=== PATIENT | female | born 1950 | race Caucasian/White ===

== ENCOUNTER 2017-04-04 20:40 | Inpatient (IN) | payer MEDICARE, OTHER ==
[~2017-04-04] VITALS: Ht 152.4 cm; Wt 84.7 kg
[2017-04-04 21:51] LABS: Basophils # (auto) 0 uL; Basophils % (auto) 0.3 % (0.0-2.0); Eosinophils # (auto) 0.1 uL; Eosinophils % (auto) 2.8 % (0.0-7.0); Hematocrit 39.4 % (36.0-46.0); Hemoglobin 13.1 g/dL (12.2-16.2); Lymphocytes # (auto) 1.1 uL; Lymphocytes % (auto) 22.4 % (10.0-50.0); Mean Corpuscular Hemoglobin 30.3 pg (28.0-32.0); Mean Corpuscular Hgb Conc. 33.3 g/dL (32.0-36.0); Mean Corpuscular Volume 90.8 fL (80.0-100.0); Monocytes # (auto) 0.6 uL; Monocytes % (auto) 11.9 % (0.0-12.0); Neutrophils % (auto) 62.6 % (37.0-80.0); Nucleated Red Blood Cells % 0.2 %; Platelet Count (auto) 81 10^3/uL (140-450); Red Blood Cells 4.34 10^6/uL (4.0-5.20); Red Cell Distribution Width 14.4 % (11.8-14.3); White Blood Cell 4.7 10^3/uL (4.4-10.8)
[2017-04-04 22:08] LABS: INR 1.15 (0.9-1.15); Partial Thromboplastin Time 29.4 sec (22.64-33.71); Prothrombin Time 12.5 sec (9.37-12.3)
[2017-04-04 22:27] LABS: Alanine Aminotransferase 37 U/L (13-56); Albumin 2.6 g/dL (3.4-5.0); Alkaline Phosphatase 104 U/L (45-117); Anion Gap 7 (5-15); Aspartate Aminotransferase 52 U/L (15-37); BUN/Creatinine Ratio 14.9; Bilirubin, Total 1.3 mg/dL (0.2-1.0); Blood Urea Nitrogen 11 mg/dL (7-18); Calcium 7.7 mg/dL (8.5-10.1); Carbon Dioxide 27 mmol/L (21-32); Chloride 104 mmol/L (98-107); GFR African American 101 mL/min; GFR Non-African American 83 mL/min; Glucose 258 mg/dL (74-106); Magnesium 2.2 mg/dL (1.6-2.6); Potassium 4.4 mmol/L (3.5-5.1); Sodium 138 mmol/L (136-145); Total Protein 7.1 g/dL (6.4-8.2)
[2017-04-05] MEDS ORDERED: FUROSEMIDE 20 MG/2 ML VIAL IV ONE (00:45)
[2017-04-05] MEDS ORDERED: DEXTROSE (50%) 50ML SYRG IV PRN (00:45)
[2017-04-05 04:17] LABS: Urine Bacteria None Seen /hpf (None Seen)
[2017-04-05 04:50] LABS: Urine Blood Trace /uL (Negative); Urine Specific Gravity 1.034 (1.001-1.035)
[2017-04-05 04:53] LABS: Urine WBC MANY /hpf (0 - 5)
[2017-04-05 05:26] LABS: Basophils # (auto) 0 uL; Basophils % (auto) 0.8 % (0.0-2.0); Eosinophils # (auto) 0.1 uL; Hemoglobin 12.4 g/dL (12.2-16.2); Lymphocytes # (auto) 1.2 uL; Monocytes # (auto) 0.4 uL; Nucleated Red Blood Cells % 0.2 %; Red Cell Distribution Width 14.3 % (11.8-14.3); White Blood Cell 4.6 10^3/uL (4.4-10.8)
[2017-04-05 05:28] LABS: Eosinophils % (auto) 2.2 % (0.0-7.0); Hematocrit 36.6 % (36.0-46.0); Lymphocytes % (auto) 25.6 % (10.0-50.0); Mean Corpuscular Volume 91.3 fL (80.0-100.0); Monocytes % (auto) 9.5 % (0.0-12.0); Neutrophils # (auto) 2.9 uL; Neutrophils % (auto) 61.9 % (37.0-80.0); Platelet Count (auto) 65 10^3/uL (140-450)
[2017-04-05 05:42] LABS: Albumin 2.4 g/dL (3.4-5.0); BUN/Creatinine Ratio 15.3; Bilirubin, Total 1.9 mg/dL (0.2-1.0); Calcium 7.5 mg/dL (8.5-10.1); Total Protein 6.4 g/dL (6.4-8.2)
[2017-04-05] MEDS: GABAPENTIN 400 MG CAP PO SCH ×3 (06:00→21:49)
[2017-04-05] MEDS: ACCU-CHEK COMFORT CURVE STRIP VI SCH ×4 (06:45→22:00)
[2017-04-05] MEDS: LEVOTHYROXINE SODIUM 50 MCG TAB PO SCH (06:45)
[2017-04-05] MEDS: InsuLIN REG 1unit/0.01ml Soln (100units/ml) SC SCH ×4 (06:49→22:00)
[2017-04-05] MEDS: FUROSEMIDE 20 MG TAB PO SCH (09:45)
[2017-04-05] MEDS: APIXABAN 5 MG TAB PO SCH ×2 (09:45→21:49)
[2017-04-05] MEDS ORDERED: METOPROLOL SUCCINATE XL 50 MG TAB PO SCH (10:00)
[2017-04-05] MEDS: metFORMIN HYDROCHLORIDE 500 MG TAB PO SCH ×2 (14:00→21:54)
[2017-04-05 18:34] LABS: Cholesterol 141 mg/dL (< 200); HDL Cholesterol 59 mg/dL (40-59); LDL Cholesterol 84 mg/dL (< 100); Triglycerides 86 mg/dL (< 150)
[2017-04-05 20:00] VITALS: BP 133/69
[2017-04-05] MEDS: ATORVASTATIN 20 MG TAB PO SCH (21:48)
[2017-04-05 21:59] VITALS: BP 133/69
[2017-04-05] MEDS: INSULIN DETEMIR(LEVEMIR) 1unit/0.01ml Soln (100units/ml) SC SCH (22:00)
[2017-04-06] MEDS ORDERED: INFLUENZA QUAD 2017-2018 0.5 ML SYRG IM ONE (01:15)
[2017-04-06 05:00] VITALS: BP 89/40
[2017-04-06] MEDS: metFORMIN HYDROCHLORIDE 500 MG TAB PO SCH ×3 (06:08→21:24)
[2017-04-06] MEDS: LEVOTHYROXINE SODIUM 50 MCG TAB PO SCH (06:08)
[2017-04-06] MEDS: GABAPENTIN 400 MG CAP PO SCH ×3 (06:08→21:23)
[2017-04-06] MEDS: InsuLIN REG 1unit/0.01ml Soln (100units/ml) SC SCH ×4 (06:14→21:37)
[2017-04-06] MEDS: ACCU-CHEK COMFORT CURVE STRIP VI SCH ×4 (06:14→21:25)
[2017-04-06 09:02] VITALS: BP 103/58
[2017-04-06] MEDS ORDERED: LORazepam 2MG/ML-1ML VIAL IV ONE (09:45)
[2017-04-06] MEDS: METOPROLOL SUCCINATE XL 50 MG TAB PO SCH (10:00)
[2017-04-06] MEDS: APIXABAN 5 MG TAB PO SCH ×2 (10:39→21:24)
[2017-04-06] MEDS: CITALOPRAM HYDROBR 20 MG TAB PO SCH (10:39)
[2017-04-06] MEDS: FUROSEMIDE 20 MG TAB PO SCH (10:40)
[2017-04-06] MEDS: INSULIN DETEMIR(LEVEMIR) 1unit/0.01ml Soln (100units/ml) SC SCH ×2 (10:41→21:24)
[2017-04-06] MEDS ORDERED: GABA400C11 (14:12)
[2017-04-06] MEDS ORDERED: LEVO50TA7 (14:12)
[2017-04-06] MEDS ORDERED: CITA-77 (14:12)
[2017-04-06] MEDS ORDERED: METF-370 (14:12)
[2017-04-06] MEDS ORDERED: METO25TA62 (14:12)
[2017-04-06] MEDS ORDERED: IBU600T (14:12)
[2017-04-06] MEDS ORDERED: APIX5TAB (14:12)
[2017-04-06 15:07] VITALS: BP 124/83
[2017-04-06] MEDS: RYTHMOL 150 MG PO SCH ×2 (15:43→21:23)
[2017-04-06 17:00] VITALS: BP 106/45
[2017-04-06] MEDS: ATORVASTATIN 20 MG TAB PO SCH (21:24)
[2017-04-06 21:27] VITALS: BP 106/45
[2017-04-07 00:02] VITALS: BP 121/56
[2017-04-07 05:00] VITALS: BP 129/61
[2017-04-07] MEDS: GABAPENTIN 400 MG CAP PO SCH ×2 (05:32→14:00)
[2017-04-07] MEDS: metFORMIN HYDROCHLORIDE 500 MG TAB PO SCH ×2 (05:32→14:00)
[2017-04-07] MEDS: RYTHMOL 150 MG PO SCH ×2 (05:33→14:00)
[2017-04-07] MEDS: InsuLIN REG 1unit/0.01ml Soln (100units/ml) SC SCH ×2 (06:12→11:30)
[2017-04-07] MEDS: LEVOTHYROXINE SODIUM 50 MCG TAB PO SCH (06:12)
[2017-04-07] MEDS: ACCU-CHEK COMFORT CURVE STRIP VI SCH ×2 (06:13→11:30)
[2017-04-07 08:00] VITALS: BP 100/52
[2017-04-07 08:33] VITALS: BP 100/52
[2017-04-07] MEDS: CITALOPRAM HYDROBR 20 MG TAB PO SCH (10:12)
[2017-04-07] MEDS: METOPROLOL SUCCINATE XL 50 MG TAB PO SCH (10:12)
[2017-04-07] MEDS: APIXABAN 5 MG TAB PO SCH (10:13)
[2017-04-07] MEDS: INSULIN DETEMIR(LEVEMIR) 1unit/0.01ml Soln (100units/ml) SC SCH (10:16)
[2017-04-07] MEDS ORDERED: ATOR20TA50 PO (10:56)
[2017-04-07 12:49] VITALS: BP 100/52
[2017-04-07 13:05] VITALS: BP 128/59
== END 2017-04-07 16:52 | disposition home or self-care (01) | DRG 291 ==
LOC: ER 20:40 → TELE 20:41 → TELE-WESTW 04-05 16:12
PROVIDERS: ADMIT Nurse Practitioner Family; ATTEND Internal Medicine
PROC: 5A09357 Assistance with Respiratory Ventilation, Less than 24 Consecutive Hours, Continuous Positive Airway Pressure (ICD-10-PCS; principal; 2017-04-05)
DX: I11.0 Hypertensive heart disease with heart failure (principal); E43 Unspecified severe protein-calorie malnutrition; E11.42 Type 2 diabetes mellitus with diabetic polyneuropathy; I48.0 Paroxysmal atrial fibrillation; K74.60 Unspecified cirrhosis of liver; Z79.01 Long term (current) use of anticoagulants; G45.9 Transient cerebral ischemic attack, unspecified; E11.65 Type 2 diabetes mellitus with hyperglycemia; E66.01 Morbid (severe) obesity due to excess calories; G47.10 Hypersomnia, unspecified; I50.33 Acute on chronic diastolic (congestive) heart failure; E06.3 Autoimmune thyroiditis; W06.XXXA Fall from bed, initial encounter; F32.9 Major depressive disorder, single episode, unspecified; F41.9 Anxiety disorder, unspecified; S89.91XA Unspecified injury of right lower leg, initial encounter; I35.0 Nonrheumatic aortic (valve) stenosis; Y93.84 Activity, sleeping; Y92.092 Bedroom in other non-institutional residence as the place of occurrence of the external cause; Y99.8 Other external cause status; Z79.84 Long term (current) use of oral hypoglycemic drugs; Z79.899 Other long term (current) drug therapy; Z82.49 Family history of ischemic heart disease and other diseases of the circulatory system; Z83.3 Family history of diabetes mellitus; Z85.42 Personal history of malignant neoplasm of other parts of uterus; Z90.710 Acquired absence of both cervix and uterus; Z98.49 Cataract extraction status, unspecified eye; Z91.041 Radiographic dye allergy status; Z88.8 Allergy status to other drugs, medicaments and biological substances; Z68.36 Body mass index [BMI] 36.0-36.9, adult
CPT/HCPCS: 36415; 70450; 70551; 71045; 73562; 80053; 80061; 81001; 82140; 82306; 82962; 83036; 83735; 83880; 84443; 84484; 85025; 85610; 85730; 87081; 93005; 93306; 93886; 93971; 94660; 96374; J1815